=== PATIENT | male | born 1975 | race Caucasian/White ===

== ENCOUNTER → 2018-03-26 10:01 | Outpatient (CLI) | payer OTHER, SELFPAY ==
--- NOTE | 2018-03-26 10:07 | RAD_ITS ---
STUDY: X-RAY CHEST REASON FOR EXAM: Male, 42 years old. Chronic cough TECHNIQUE: Frontal and lateral views of the chest COMPARISON: None. FINDINGS: The lungs are clear. There are no pleural effusions. There is no pneumothorax. The heart is normal in size. The visualized osseous structures are within normal limits. RAD/Chest PA and Lateral IMPRESSION: No acute thoracic pathology. Electronically Signed: Van Valero, at 23:53 EDT Tel , Service support ,
== END ==
PROVIDERS: Family Provider Family Medicine; PCP Family Medicine; Visit Provider Family Medicine
DX: R05 Cough (principal)
CPT/HCPCS: 71046

== ENCOUNTER → 2022-02-26 | Outpatient (CLI) | payer OTHER, SELFPAY ==
[2022-02-26 18:13] LABS: Absolute Lymphocyte Count 1.88 X10^3/uL (0.83-4.51); Absolute Neutrophil Count 5.7 X10^3/uL (2.0-7.7); Basophil# 0.03 X10^3/uL; Basophil% 0.4 % (0-1); Eosinophils% 2.4 % (0-5); Hematocrit 45.5 % (40-54); Hemoglobin 15.2 g/dL (13.0-16.5); Lymphocyte # 1.88 X10^3/ul (0.83-4.51); Lymphocyte % 22.3 % (19-41); Mean Corp Hgb Conc 33.4 g/dL (32-36); Mean Corpuscular Hgb 30.3 pg (27.0-32.0); Mean Corpuscular Volume 90.6 fL (80-94); Mean Platelet Vol. 9.7 fl (6.2-12.0); Monocyte# 0.64 X10^3/uL; Monocyte% 7.6 % (0-10); NRBC Flagged by Analyzer 0 % (0-5); Neutrophil # 5.65 X10^3/uL (2.7-7.7); Neutrophil % 66.8 % (47-70); Platelet Count 257 K/mm3 (150-450); RBC Distribution Width CV 12.6 % (11.6-14.6); RBC Distribution Width SD 41.1 fl (35.1-43.9); Red Blood Count 5.02 M/mm3 (4.6-6.2); White Blood Count 8.4 K/mm3 (4.4-11.0)
[2022-02-26 18:56] LABS: AST(SGOT) 29 U/L (15-37); Alanine Aminotransfer ALT/SGPT 49 U/L (16-61); Albumin, Serum 3.7 g/dL (3.2-5.0); Alkaline Phosphatase 42 U/L (45-117); Anion Gap 4 (5-15); BUN 12 mg/dL (7-18); BUN/Creat Ratio 13.8 RATIO (10-20); Calcium,Total 8.7 mg/dL (8.5-10.1); Chloride 103 mmol/L (98-107); Cholesterol 172 mg/dL (200); Creatinine, Serum 0.87 mg/dL (0.70-1.30); EST Glomerular Filtration Rate 99 mL/min (>60); Est Glom Filt Rate - Afr Amer 120 mL/min (>60); Globulin 3.7 g/dL (2.2-4.2); Glucose 90 mg/dL (74-106); High Density Lipoprotein 35 mg/dL; Potassium 3.9 mmol/L (3.5-5.1); Protein, Total 7.4 g/dL (6.4-8.2); Sodium Level 138 mmol/L (136-145); T4 Free Direct 0.65 ng/dL (0.76-1.46); Triglycerides 128 mg/dL; Very Low Density Lipoprotein 26 mg/dL (5-40)
[2022-02-26 18:58] LABS: Vitamin B12 498 pg/mL (211-911); Vitamin D,25 Hydroxy 25.5 ng/mL
== END | disposition home or self-care (01) ==
LOC: MFPLAB 16:52
PROVIDERS: PCP Family Medicine; Visit Provider Family Medicine
DX: R53.83 Other fatigue (principal); E66.9 Obesity, unspecified
CPT/HCPCS: 36415; 80053; 80061; 82306; 82607; 84432; 84439; 84443; 85025; 86376; 86800

== ENCOUNTER → 2022-02-28 | Outpatient (CLI) | payer OTHER, SELFPAY ==
[2022-03-06 16:30] LABS: Anti-Thyroglobulin AB < 1.0 IU/mL (0.0-0.9); Thyroglobulin, Serum Qt. 8.1 ng/mL (1.4-29.2); Thyroid Peroxidase AB 9 IU/mL (0-34)
== END | disposition home or self-care (01) ==
LOC: MFPLAB 16:40
PROVIDERS: PCP Family Medicine; Referring Provider Family Medicine; Visit Provider Family Medicine
DX: R94.6 Abnormal results of thyroid function studies (principal)
CPT/HCPCS: 36415; 84432; 86376; 86800

== ENCOUNTER → 2022-04-11 | Outpatient (CLI) | payer OTHER, SELFPAY ==
--- NOTE | 2022-04-10 | CYST_PTH ---
PATIENT: GAUTAM MOREL LOC: [facility] U#:[id number] AGE/SX: 46/M ROOM: RE04/11/[address]: Dr. Zak Berry MD : 1975 BED: DIS: 04/11/2022 SPEC #: [id number] RECD: 04/11/22 08:55 STATUS: JEANETTE RETabitha #: [id number] MAIRA: 04/10/22 00:[address]: Zak Berry DEPT: SURGICAL PATHOLOGY RECD BY: Renny Arellano ENTERED: 04/11/22 08:55 SP TYPE: Cyst OTHR DR: Logan Baker MD Tissues: CYST Procedures: Surgery Specimen Level III HEADER OPERATION: Excision left neck cyst PRE-OP DIAGNOSIS: Left neck cyst TISSUE SUBMITTED: Left neck tissue MICROSCOPIC DIAGNOSIS Left neck lesion, excisional biopsy: Epidermal inclusion cyst. VELVET:angel 04/12/2022 MICROSCOPIC DESCRIPTION Slides are reviewed. GROSS DESCRIPTION Received in fixative is one container labeled with the patient's name and designated left neck. The specimen consists of a piece of skin with underlying tissue. The skin piece measures 1 x 0.2 cm and underlying tissue measures 1 x 1 x 0.6 cm. The specimen is inked and bisected and reveals a cyst filled with maldonado-white cheesy material and the underlying tissue measuring 1 cm in greatest dimension. The entire specimen is submitted in one cassette. / SJ:rg 04/11/2022 :5 [facility]: [id number]
== END | disposition home or self-care (01) ==
LOC: LABSPEC 08:21
PROVIDERS: PCP Family Medicine; Referring Provider Surgery; Visit Provider Surgery
DX: L72.0 Epidermal cyst (principal)
CPT/HCPCS: 88304

== ENCOUNTER → 2022-11-21 | Outpatient (CLI) | payer OTHER, SELFPAY ==
[2022-11-21 18:47] LABS: Anion Gap 6 (5-15); BUN 12 mg/dL (7-18); BUN/Creat Ratio 14.1 RATIO (10-20); Chloride 102 mmol/L (98-107); Cholesterol 173 mg/dL (200); Creatinine, Serum 0.85 mg/dL (0.70-1.30); EST Glomerular Filtration Rate 102 mL/min (>60); Est Glom Filt Rate - Afr Amer 123 mL/min (>60); Glucose 80 mg/dL (74-106); High Density Lipoprotein 40 mg/dL; PSA,Total - Annual Screen 3.82 ng/mL (0.00-4.00); Potassium 3.6 mmol/L (3.5-5.1); Sodium Level 137 mmol/L (136-145); Triglycerides 85 mg/dL; Very Low Density Lipoprotein 17 mg/dL (5-40)
== END | disposition home or self-care (01) ==
LOC: MFPLAB 16:47
PROVIDERS: PCP Family Medicine; Visit Provider Family Medicine
DX: Z12.5 Encounter for screening for malignant neoplasm of prostate (principal); R53.83 Other fatigue; R79.89 Other specified abnormal findings of blood chemistry
CPT/HCPCS: 36415; 80048; 80061; 84153; G0103

== ENCOUNTER → 2024-04-09 | Outpatient (CLI) | payer OTHER, SELFPAY ==
[2024-04-09 17:49] LABS: Absolute Lymphocyte Count 1.83 X10^3/uL (0.83-4.51); Absolute Neutrophil Count 5.7 X10^3/uL (2.0-7.7); Basophil# 0.05 X10^3/uL; Basophil% 0.6 % (0-1); Eosinophil# 0.26 X10^3/uL; Hematocrit 45.9 % (40-54); Hemoglobin 15.4 g/dL (13.0-16.5); Lymphocyte # 1.83 X10^3/ul (0.83-4.51); Lymphocyte % 21.3 % (19-41); Mean Corp Hgb Conc 33.6 g/dL (32-36); Mean Corpuscular Hgb 29.5 pg (27.0-32.0); Mean Corpuscular Volume 87.9 fL (80-94); Mean Platelet Vol. 9.9 fl (6.2-12.0); Monocyte% 8.1 % (0-10); NRBC Flagged by Analyzer 0 % (0-5); Neutrophil # 5.69 X10^3/uL (2.7-7.7); Neutrophil % 66.3 % (47-70); Platelet Count 287 K/mm3 (150-450); RBC Distribution Width CV 12.5 % (11.6-14.6); RBC Distribution Width SD 40.2 fl (35.1-43.9); Red Blood Count 5.22 M/mm3 (4.6-6.2); White Blood Count 8.6 K/mm3 (4.4-11.0)
[2024-04-09 17:57] LABS: Vitamin D,25 Hydroxy 35.6 ng/mL
[2024-04-09 18:00] LABS: ALB/GLOB Ratio 1.1 RATIO (0.9-2.4); AST(SGOT) 26 U/L (15-37); Alanine Aminotransfer ALT/SGPT 45 U/L (16-61); Alkaline Phosphatase 41 U/L (45-117); Anion Gap 5 (5-15); BUN 17 mg/dL (7-18); BUN/Creat Ratio 19.8 RATIO (10-20); Calcium,Total 9.4 mg/dL (8.5-10.1); Chloride 107 mmol/L (98-107); Cholesterol 212 mg/dL (200); Creatinine, Serum 0.86 mg/dL (0.70-1.30); EST Glomerular Filtration Rate 100 mL/min (>60); Est Glom Filt Rate - Afr Amer 121 mL/min (>60); Globulin 3.5 g/dL (2.2-4.2); Glucose 86 mg/dL (74-106); High Density Lipoprotein 45 mg/dL; PSA,Total - Annual Screen 4.29 ng/mL (0.00-4.00); Potassium 3.9 mmol/L (3.5-5.1); Protein, Total 7.5 g/dL (6.4-8.2); Sodium Level 139 mmol/L (136-145); T4 Free Direct 0.68 ng/dL (0.76-1.46); Triglycerides 117 mg/dL; Very Low Density Lipoprotein 23 mg/dL (5-40)
[2024-04-13 09:09] LABS: Anti-Thyroglobulin AB < 1.0 IU/mL (0.0-0.9); Thyroglobulin, Serum Qt. 7.7 ng/mL (1.4-29.2); Thyroid Peroxidase AB < 9 IU/mL (0-34)
== END | disposition home or self-care (01) ==
LOC: MFPLAB 16:19
PROVIDERS: PCP Family Medicine; Visit Provider Family Medicine
DX: Z00.00 Encounter for general adult medical examination without abnormal findings (principal); Z12.5 Encounter for screening for malignant neoplasm of prostate; E55.9 Vitamin D deficiency, unspecified; R94.6 Abnormal results of thyroid function studies; R79.89 Other specified abnormal findings of blood chemistry
CPT/HCPCS: 36415; 80053; 80061; 82306; 84153; 84432; 84439; 84443; 85025; 86376; 86800; G0103